=== PATIENT | female | born 1945 | race Caucasian/White ===

== ENCOUNTER 2018-02-10 05:23 | Inpatient (IN) ==
[2018-02-10] MEDS ORDERED: Chlorhexidine Gluconate 2% 1 Pack (2 Cloths) TOPICAL SCH (06:15)
[2018-02-10] MEDS ORDERED: Sodium Chlor 0.9% Inj 40 ML, Bupivacaine Liposo PF 1.3% Inj 20 ML P-ARTICULR SCH ×2 (06:15)
[2018-02-10] MEDS ORDERED: Metoprolol Tartrate 25 MG Tablet PO SCH (06:15)
[2018-02-10] MEDS ORDERED: Chlorhexidine 4% Topical 120 APPLIC/120 ML Bottle TOPICAL SCH (06:15)
[2018-02-10] MEDS ORDERED: TRANEXAMIC ACID IV.SIG SCH (07:00)
[2018-02-10] MEDS ORDERED: Sodium Chlor 0.9% Inj 500 ML IV.SIG SCH (07:00)
[2018-02-10] MEDS ORDERED: ceFAZolin 2 GM Premix Inj 2 GM/50 ML PIGGYBACK IV.SIG SCH (07:00)
[2018-02-10] MEDS ORDERED: Vancomycin Inj 1 GM/200 ML PIGGYBACK IV.SIG SCH (07:00)
[2018-02-10] MEDS ORDERED: SODIUM CHLOR 0.9% IV.SIG SCH (07:00)
[2018-02-10] MEDS ORDERED: Bupivacaine/Epinephrine Inj 0.25% 50 ML Vial ONE (07:30)
[2018-02-10] MEDS ORDERED: Temazepam 15 MG Capsule PO PRN (09:12)
[2018-02-10] MEDS ORDERED: Morphine Inj 4 MG/ML Vial IV.PUSH PRN (09:12)
[2018-02-10] MEDS ORDERED: Post-op Orders (for Pharmacy) OTHER STA (09:12)
[2018-02-10] MEDS ORDERED: Bisacodyl 10 MG Supp RECTAL PRN (09:12)
--- NOTE | 2018-02-10 09:21 | P.OP ---
- Preoperative Diagnosis (1) Osteoarthritis of right hip Date of procedure: 02/10/18 Procedure: Right total hip replacement arthroplasty, direct anterior exposure Anesthesia: GETA Surgeon: Dawood Laguna MD Reamer Hand: Mai Saravia PA-C Operation and Findings: EBL: 200 cc INDICATION: This patient presents with significant hip pain related to severe osteoarthritis of the right hip. Despite extensive conservative care this patient continues to be painful and now presents for surgical treatment. NOTE: Mai Saravia PA-C was present for the entire surgical procedure as my administrative assistant front desk. In my medical opinion her skill and care was necessary for the proper management of this patient. COMPONENTS: COMPANY: [employer] CUP: [place]ilion, 48, 100 series, gription surface LINER: Altrx 32, neutral STEM: [place], size 13, high offset, hydroxyapatite-coated HEAD: 32 mm, metal, 07/03 taper PROCEDURE: This patient was brought to the operating room and anesthetized in the supine position and positioned on the fracture table with both legs held extended. The right hip and leg was scrubbed with alcohol followed by Hibiclens followed by ChloraPrep and draped sterilely. Antibiotics were given within routine time window and a timeout was done. A 4 inch incision was made starting 2 cm distal and 2 cm lateral to the anterior superior iliac spine. The fascia yady was opened longitudinally. The interval between the fascia yady and the rectus was opened down to the capsule of the hip joint. Retractors were positioned allowing good visualization of the capsule. This was opened longitudinally and flaps were created. Stay sutures were utilized. Exposure was excellent. The neck was cut at the proper location using fluoroscopy as a guide. The head was removed. Deep retractors were positioned allowing good visualization of the acetabulum. Acetabulum was deepened down to the floor starting with a proper size reamer and reaming up to 47 mm. A trial was utilized. Fluoroscopy was used to check position and confirmed satisfactory alignment. The rim was reamed with a 48 mm reamer and the final cup was positioned in approximately 20 of anteversion and 40-45 of abduction. Position was satisfactory. A single hole eliminator was positioned followed by the final liner. The lifting hook was utilized. The leg was dropped to the floor, maximally externally rotated and brought across the midline. Retractors were positioned. A box osteotome was utilized followed by progressive broaching to the proper stem size. Trial reduction showed excellent alignment and fit. With 60 of external rotation the leg was dropped to the floor without evidence of anterior subluxation. The wound was irrigated. The final stem was inserted and was found to be very stable. The final reduction using the final head. Stability was as previously noted. Intraoperative x-rays were taken. The wound was irrigated copiously. Hemostasis was controlled. Local anesthesia was utilized. The capsule was repaired with #2 Tycron sutures. The fascia yady was repaired with running 0 PDS on a loop. Subcutaneous tissue was approximated with 2-0 Vicryl and skin with running intradermal 3-0 Vicryl followed by Steri-Strips. A sterile dressing was applied. The patient was awakened and taken to the recovery room in satisfactory condition. FINDINGS: The final solution appeared to be excellent. There was no complication that was appreciated.
--- NOTE | 2018-02-10 09:22 | P.DCO ---
- Physical Therapy Physical Therapy: Gait training Hip: Total hip, Protocol: Right (Anterior) Right Lower Extremity Weight Bearing: Weight bearing as tolerated - Nursing RN: 3 days/week x 2 weeks Nursing: Other Dressing changes: Do not change dressing - Certification Need for Home Health services: I have seen patient Valarie Cain on 02/10/18. My clinical findings support the need for the requested home health care services because: Need for Home Health Services: Limited ability to care for self, High risk of falls Homebound Certification: I certify that my clinical findings support that this patient is homebound because: Homebound Certification: Unsteady gait/balance
--- NOTE | 2018-02-10 09:34 | P.DS ---
Date of admission: 02/10/18 05:23 Primary care physician: Zachary Gibson Anticipated date of discharge: 02/11/18 Brief History from admission: This patient is a 72-year-old female with long-standing arthritis of the right hip. She has been treated conservatively as outlined in the attached records. She presents for elective total hip replacement arthroplasty DS: Diagnosis - Discharge Diagnosis (1) Osteoarthritis of right hip Status: Acute DS: Medications - Discharge Medications Prescriptions: hydrocodone-acetaminophen 1 tab PO Q4H PRN #42 tab PRN Reason: Acute Pain DS: Summary Hospital Course: The patient was admitted electively on 02/10/2018. She had an unremarkable perioperative course. She had an uncemented total hip replacement. Postoperative x-rays were satisfactory. She progressed well. She was up and out of bed with little assistance. She is using a walker. Diet was regular. She was felt to be a candidate for discharge home on postop day 1 - Time Spent with Patient Total time spent providing and/or coordinating discharge services: - Quality: VTE Deep Vein Thrombosis/Pulmonary Embolism Present on Admission: No Exam Vital signs: Vital Signs 02/10/18 06:09 Temperature 96.9 F L Pulse Rate 52 L Respiratory Rate 18 Blood Pressure 158/77 H Pulse Oximetry 94 L Intake & Output 02/09/18 02/10/18 02/10/18 18:59 06:59 18:59 Intake Total 1550 / 1550 Output Total 150 / 150 Balance 1400 / 1400 Weight 42.3 kg Intake: IV 1000 / 1000 LR 1000 mL Inj 1,000 ML @ 30 1000 / 1000 mls/hr IV.SIG .Q24H IMAN Rx#: [id number] Anesthesia Amount 550 / 550 Output: Estimated Blood Loss 150 / 150 Other: Weight On Admission 42.3 kg Narrative: Postop day 1 incision was dry. Sensation almost normal except lateral to the incision. Leg lengths are equal. No complication Results Procedures completed during hospitalization: Right total hip arthroplasty, anterior Labs on day of discharge: Labs from last 24 hours 02/10/18 06:05 Blood Type A Positive Antibody Screen Negative MTS Gel Crossmatch See Detail Discharge Plan - Discharge Disposition Patient Disposition: 01 Discharge Home - Discharge Condition Condition: Good - Discharge Order Discharge Orders: Discharge Order (Routine); Ordered 02/10/18 Ordered By: Dawood Laguna - Discharge Details Anticipated Discharge Date: 02/11/18 - Physicians Team Primary Care Provider: Zachary Gibson Attending Provider: Dawood Laguna - Rxs /Orders / Referrals /Forms Prescriptions: New aspirin 81 mg Tablet,Chewable 81 mg PO BID RF: 0 hydrocodone-acetaminophen 7.5-325 mg Tablet 1 tab PO Q4H PRN (Reason: Acute Pain) Qty: 42 RF: 0 Continue alpha lipoic acid 200 mg Tablet 200 mg PO DAILY betaine HCl 300 mg Tablet 648 mg PO 3XW gelatin 600 mg Capsule 1,680 mg PO QID cris extract 500 mg Capsule 525 mg PO DAILY multivitamin,tx-minerals [Multi-Vitamin HP/Minerals] Capsule 1 cap PO DAILY omega-3 fatty acids 1,000 mg Capsule 1,000 mg PO DAILY red yeast rice 600 mg Capsule 600 mg PO DAILY zinc 50 mg Tablet 22 mg PO EVERY OTHER DAY Discontinued aspirin [Aspir-Low] 81 mg Tablet,Delayed Release (Dr/Ec) 81 mg PO DAILY Ambulatory Orders / Order Sets / DME: Walker With Front Wheels (1 each) (Routine) Location: Determined by Patient Ordered By: Dawood Laguna Referrals: Zachary Gibson DO [Primary Care Provider] - See Instructions Dawood Laguna MD [Physician] - See Instructions ( Your appointment has been scheduled for Friday02/24/18 at 1:00 pm. If you cannot make this appointment, please call the office to reschedule )
[2018-02-10] MEDS ORDERED: fentaNYL Citrate Inj 100 MCG/2 ML Ampul ONE (09:55)
[2018-02-10] MEDS ORDERED: Neostigmine Inj 5 MG/5 ML Syringe IV.PUSH ONE (12:00)
[2018-02-10] MEDS ORDERED: Ketorolac Inj 30 MG/ML (IVP) Vial IV.PUSH ONE (12:00)
[2018-02-10] MEDS ORDERED: Glycopyrrolate Inj 1 MG/5 ML Syringe IV.PUSH ONE (12:00)
[2018-02-10] MEDS ORDERED: Lidocaine PF 1% Inj 5 ML Syringe INFILTRATN ONE (12:00)
[2018-02-10] MEDS ORDERED: Metoprolol Inj 5 MG/5 ML Vial IV.PUSH ONE (12:00)
--- NOTE | 2018-02-10 13:56 | XR ---
EXAM DATE: 02/10/2018 1:47 PM EDT AGE/SEX: 72 years / Female INDICATIONS: Right total hip arthroplasty. CLINICAL DATA: This is the patient's initial encounter. Patient reports that signs and symptoms have been present for 1 day and indicates a pain score of Nonresponsive. MEDICAL/SURGICAL HISTORY: Non-responsive. Non-responsive. COMPARISON: No prior exams available for comparison. FINDINGS: Multiple views of the right hip were obtained and demonstrate that the patient is status post right h ip arthroplasty. The femoral and acetabular components are intact and in normal alignment. There are acute postsurgical changes with soft tissue swelling and surgical hieu. CONCLUSION: Expected postsurgical changes. Electronically signed by: Nolberto Echeverria MD 02/10/2018 1:54 PM EDT
[2018-02-10] MEDS: Senna/Docusate Sodium 8.6/50 MG Tablet PO SCH (20:53)
[2018-02-10] MEDS: Multivitamin/Minerals Therapeutic Tablet PO SCH (20:54)
[2018-02-11 05:13] VITALS: RESP 18
--- NOTE | 2018-02-11 07:29 | P.PNOP ---
Subjective Interval history: Doing well. Pain well controlled. No complaints Physical Exam Vital signs: Vital Signs 02/10/18 09:48 02/10/18 10:15 02/10/18 10:30 Temperature 97.6 F Pulse Rate 81 63 66 Respiratory Rate 18 18 18 Blood Pressure 166/82 H 138/58 L 144/67 H Pulse Oximetry 100 100 02/10/18 10:45 02/10/18 11:45 02/10/18 13:00 Temperature Pulse Rate 54 L 58 L 60 Respiratory Rate 18 18 18 Blood Pressure 138/62 145/67 H 98/57 L Pulse Oximetry 100 100 100 02/10/18 13:45 02/10/18 15:00 02/10/18 19:57 Temperature 97.6 F 97.4 F L 98.0 F Pulse Rate 60 65 70 Respiratory Rate 18 17 Blood Pressure 107/57 L 125/58 L 105/56 L Pulse Oximetry 100 98 96 02/10/18 23:04 Temperature 98.3 F Pulse Rate 74 Respiratory Rate 18 Blood Pressure 109/55 L Pulse Oximetry 97 Intake & Output 02/10/18 02/11/18 02/11/18 18:59 06:59 18:59 Intake Total 1804.25 / 1804.25 Output Total 150 / 150 Balance 1654.25 / 1654.25 Intake: IV 1254.25 / 1254.25 LR 1000 mL Inj 1,000 ML @ 30 1000 / 1000 mls/hr IV.SIG .Q24H IMAN Rx#: [id number] Cyklokapron Inj 425 MG In NS 104.25 / 104.25 Inj 100 ML @ 200 mls/hr IV.SIG ONCE IMAN Rx#:[id number] Ancef 2 GM Premix Inj 2 gm In 50 / 50 50 ml @ 100 mls/hr IV.SIG [employer] IMAN Rx#:[id number] Ancef Inj 1,000 MG In NS Inj 100 / 100 100 ML @ 200 mls/hr IV.SIG Q6H IMAN Rx#:[id number] Anesthesia Amount 550 / 550 Output: Estimated Blood Loss 150 / 150 Other: Date of Last Bowel Movement 02/10/18 Narrative: Incision dry. Sensation altered lateral to incision. No significant swelling or redness. Motor examination normal. Leg lengths equal Results - Imaging Impressions Hip X-Ray 02/10/18 00:00 CONCLUSION: Expected postsurgical changes. Assessment and Plan - Problem List (1) Osteoarthritis of right hip Code(s): M16.11 - Unilateral primary osteoarthritis, right hip Status: Acute Qualifiers: Osteoarthritis type: primary Qualified Code(s): M16.11 - Unilateral primary osteoarthritis, right hip - Assessment and Plan Osteoarthritis right hip. Surgery: Right MAHAD, anterior: POD #1. PLAN: Weightbearing as tolerated. No dressing change. [place] as needed for pain. Aspirin 81 mg twice daily for 30 days. Discharge to home. Home health care/home PT. Discharge today. Orthopedically stable
[2018-02-11] MEDS: Multivitamin/Minerals Therapeutic Tablet PO SCH (09:37)
[2018-02-11] MEDS: Senna/Docusate Sodium 8.6/50 MG Tablet PO SCH (09:38)
[2018-02-11 09:46] LABS: Hematocrit 28.1 % (35.0-46.0); Hemoglobin 9.6 gm/dL (11.6-15.3)
[2018-02-11 15:48] VITALS: BP 132/63; PULSE 71; TEMP 98.2; O2SAT 98
== END 2018-02-11 14:48 | disposition home health service (06) ==
LOC: HSDI 05:23 → N06 14:02
PROVIDERS: ADMIT Orthopaedic Surgery Orthopaedic Surgery of the Spine; ATTEND Orthopaedic Surgery Orthopaedic Surgery of the Spine